=== PATIENT | female | born 1945 | race Caucasian/White ===

== ENCOUNTER 2017-10-12 18:37 | Inpatient (IN) | payer BC, MEDICARE ==
[2017-10-12 19:28] LABS: ADD MAN DIFF? NO
[2017-10-12 19:29] LABS: AGAP ISTAT 17 mmol/L (6-14); BUN ISTAT 16 mg/dL (8-26); CHLORIDE ISTAT 97 mmol/L (98-110); CREATININE ISTAT 0.9 mg/dL (0.5-1.4); GLUCOSE ISTAT 100 mg/dL (70-99); HEMATOCRIT ISTAT 41 % (36-40); HEMOGLOBIN ISTAT 13.9 g/dL (12-15); ION CA ISTAT 1.15 mmol/L (1.13-1.32); POTASSIUM ISTAT 4.7 mmol/L (3.5-5.0); SODIUM ISTAT 132 mmol/L (135-145); TOT CO2 ISTAT 24 mmol/L (23-32)
[2017-10-12 19:30] LABS: BASO # 0.1 x10^3/uL (0.0-0.2); BASO % 1 % (0-3); EOS # 0.6 x10^3/uL (0.0-0.7); EOS % 5 % (0-3); HEMATOCRIT 40.9 % (36.0-47.0); HEMOGLOBIN 14.2 g/dL (12.0-15.5); LYMPH # 1.1 x10^3/uL (1.0-4.8); LYMPH % 9 % (24-48); MEAN CORPUSCULAR HEMOGLOBIN 32 pg (25-35); MEAN CORPUSCULAR HGB CONC 35 g/dL (31-37); MEAN CORPUSCULAR VOLUME 93 fL (79-100); MONO % 8 % (0-9); NEUT # 10.1 x10^3uL (1.8-7.7); NEUT % 78 % (31-73); PLATELET COUNT 273 x10^3/uL (140-400); RED BLOOD COUNT 4.41 x10^6/uL (3.50-5.40); RED CELL DISTRIBUTION WIDTH 14.6 % (11.5-14.5); WHITE BLOOD COUNT 13.1 x10^3/uL (4.0-11.0)
[2017-10-12 19:38] LABS: PROTHROMBIN TIME PATIENT 13.1 SEC (11.7-14.0)
[2017-10-12] MEDS ORDERED: CONTRAST GIVEN. MC (19:45)
[2017-10-12] MEDS: IOHEXOL 300 MG/ML 100ML VIAL. IV (19:45)
[2017-10-12 19:46] LABS: TROPONIN BY ISTAT 0.03 ng/ml (<0.08)
[2017-10-12 19:48] LABS: ALBUMIN 3.6 g/dL (3.4-5.0); ALBUMIN/GLOBULIN RATIO 1.1 (1.0-1.7); ALK PHOS 95 U/L (46-116); ALT (SGPT) 54 U/L (14-59); ANION GAP 9 (6-14); AST (SGOT) 31 U/L (15-37); BLOOD UREA NITROGEN 15 mg/dL (7-20); BUN/CREATININE RATIO 15 (6-20); CALCIUM 8.8 mg/dL (8.5-10.1); CARBON DIOXIDE 27 mmol/L (21-32); CREATINE KINASE 38 U/L (26-192); GFR 54.2; POTASSIUM 4.7 mmol/L (3.5-5.1); TOTAL BILIRUBIN 0.4 mg/dL (0.2-1.0)
[2017-10-12 19:49] LABS: CHLORIDE 97 mmol/L (98-107); GLUCOSE 103 mg/dL (70-99); SODIUM 133 mmol/L (136-145)
[2017-10-12] MEDS ORDERED: HEPARIN for IV BOLUS 10,000 UNIT/10 ML VIAL. IV (21:00)
[2017-10-12] MEDS: dilTIAZem IV PUSH 25 MG/5 ML VIAL IVP (21:01)
[2017-10-12] MEDS ORDERED: fentaNYL PF VIAL 100 MCG/2 ML VIAL IV ×3 (21:30→23:30)
[2017-10-12] MEDS: HEPARIN for IV BOLUS 10,000 UNIT/10 ML VIAL. IV (21:31)
[2017-10-12] MEDS: HEPARIN 25,000UTS/500ML PREMIX 500 ML IV (21:33)
[2017-10-12] MEDS ORDERED: GELATIN SPONGE SIZE 100. (22:37)
[2017-10-12] MEDS ORDERED: IOHEXOL 300 MG/ML 100ML VIAL. (22:37)
[2017-10-12] MEDS ORDERED: PAPAVERINE 60 MG/2 ML VIAL FOR OR ONLY. (22:38)
[2017-10-12] MEDS ORDERED: THROMBIN TOPICAL 20,000 UNIT SPRAY.SYRN KIT TP (22:38)
[2017-10-12] MEDS ORDERED: ONDANSETRON PF 4 MG/2 ML VIAL. IV (23:30)
[2017-10-12] MEDS ORDERED: MORPHINE SULFATE 4 MG/ML DISP.SYRIN. IV (23:30)
[2017-10-12] MEDS ORDERED: IV RINGERS,LACTATED 1000ML 1,000 ML IV (23:30)
[2017-10-12] MEDS ORDERED: LIDOCAINE 1% PF 2 ML VIAL. ID (23:30)
[2017-10-12] MEDS ORDERED: PROCHLORPERAZINE 10 MG/2 ML VIAL. IV (23:30)
[2017-10-12] MEDS ORDERED: SEVOFLURANE > 120 MINUTES. IH (23:38)
[2017-10-12] MEDS ORDERED: ROCURONIUM 50 MG/5 ML VIAL. (23:40)
[2017-10-12] MEDS ORDERED: fentaNYL PF VIAL 100 MCG/2 ML VIAL (23:41)
[2017-10-12] MEDS ORDERED: MIDAZOLAM HCL/PF 2 MG/2 ML VIAL. (23:41)
[2017-10-12] MEDS ORDERED: NEOSTIGMINE METHYLSULFATE 5 MG/5 ML SYRINGE. (23:41)
[2017-10-12] MEDS ORDERED: GLYCOPYRROLATE 1 MG/5 ML VIAL. (23:41)
[2017-10-12] MEDS ORDERED: PROPOFOL 20 ML IV (23:43)
[2017-10-12] MEDS ORDERED: ONDANSETRON PF 4 MG/2 ML VIAL. (23:43)
[2017-10-12] MEDS ORDERED: LIDOCAINE 2% PF Vial for OR 5 ML VIAL. (23:43)
[2017-10-12] MEDS ORDERED: DEXAMETHASONE SOD PHOS 20 MG/5 ML VIAL. (23:43)
[2017-10-13] MEDS ORDERED: PHENYLEPHRINE in 0.9% NACL PF 1 MG/10 ML SYRINGE. IV (00:13)
[2017-10-13] MEDS: SURGICEL FIBRILLAR 1X2 EACH. (00:21)
[2017-10-13] MEDS: HEPARIN SODIUM 5,000 UNIT in IV NORMAL SALINE 500ML BAG 500 ML IRR (00:21)
[2017-10-13] MEDS ORDERED: ePHEDrine PF IN SALINE 50 MG/5 ML DISP.SYRIN IV (00:23)
[2017-10-13] MEDS ORDERED: VASOPRESSIN 20 UNIT/ML VIAL. (00:44)
[2017-10-13] MEDS ORDERED: ROCURONIUM 50 MG/5 ML VIAL. (01:21)
[2017-10-13] MEDS ORDERED: fentaNYL PF VIAL 100 MCG/2 ML VIAL (01:31)
[2017-10-13] MEDS ORDERED: ESMOLOL 100 MG/10 ML VIAL. IV (02:15)
[2017-10-13] MEDS ORDERED: oxyCODONE/APAP 10/325 1 TAB TABLET PO (02:45)
[2017-10-13] MEDS ORDERED: MORPHINE SULFATE 4 MG/ML DISP.SYRIN. IV (02:45)
[2017-10-13] MEDS: CLOPIDOGREL BISULFATE 75 MG TABLET PO (02:57)
[2017-10-13] MEDS ORDERED: ALBUTEROL SULFATE 2.5 MG/3 ML NEBU. (03:41)
[2017-10-13] MEDS ORDERED: ALBUTEROL SULFATE 2.5 MG/3 ML NEBU. NEB (03:45)
[2017-10-13] MEDS ORDERED: METOPROLOL TARTRATE 5 MG/5 ML VIAL. (03:56)
[2017-10-13] MEDS: METOPROLOL TARTRATE 5 MG/5 ML VIAL. IVP ×2 (04:00→04:10)
[2017-10-13 05:23] LABS: BASO % 0 % (0-3); EOS # 0.1 x10^3/uL (0.0-0.7); EOS % 0 % (0-3); HEMATOCRIT 39.6 % (36.0-47.0); HEMOGLOBIN 13.6 g/dL (12.0-15.5); LYMPH # 0.5 x10^3/uL (1.0-4.8); LYMPH % 3 % (24-48); MEAN CORPUSCULAR HEMOGLOBIN 32 pg (25-35); MEAN CORPUSCULAR HGB CONC 34 g/dL (31-37); MEAN CORPUSCULAR VOLUME 94 fL (79-100); MONO # 0.2 x10^3/uL (0.0-1.1); MONO % 1 % (0-9); NEUT # 16.8 x10^3uL (1.8-7.7); NEUT % 95 % (31-73); PLATELET COUNT 253 x10^3/uL (140-400); RED BLOOD COUNT 4.22 x10^6/uL (3.50-5.40); RED CELL DISTRIBUTION WIDTH 14.6 % (11.5-14.5); WHITE BLOOD COUNT 17.5 x10^3/uL (4.0-11.0)
[2017-10-13 05:25] LABS: ADD MAN DIFF? YES
[2017-10-13 05:34] LABS: PARTIAL THROMBOPLASTIN TIME 117 SEC (24-38)
[2017-10-13 06:21] LABS: % BANDS 1 % (0-9); % LYMPHS 2 % (24-48); % MONOS 2 % (0-10); % SEGS 95 % (35-66)
[2017-10-13 06:22] LABS: PLT ESTIMATE ADEQUATE (ADEQUATE)
[2017-10-13] MEDS: ANTI-COAG MONITOR BY PHARMACY. MC (08:54)
[2017-10-13] MEDS ORDERED: HYDROcodone/APAP 5/325MG 1 TAB TABLET PO (09:15)
[2017-10-13] MEDS: HYDROcodone/APAP 5/325MG 1 TAB TABLET PO (12:00)
[2017-10-13] MEDS: ASPIRIN CHEWABLE 81 MG TABLET. PO (12:16)
[2017-10-13] MEDS: DIGOXIN IV 500 MCG/2 ML AMPUL. IV (12:16)
[2017-10-13] MEDS: PANTOPRAZOLE 40 MG TABLET.DR. PO (12:17)
[2017-10-13] MEDS: METOPROLOL TART IMMED RELEASE 50 MG TABLET. PO (18:10)
[2017-10-13] MEDS: ATORVASTATIN CALCIUM 10 MG TABLET. PO (20:31)
[2017-10-13] MEDS: ZOLPIDEM 5 MG TABLET. PO (22:59)
[2017-10-14 04:10] LABS: ADD MAN DIFF? NO
[2017-10-14 04:20] LABS: BASO # 0.1 x10^3/uL (0.0-0.2); BASO % 1 % (0-3); EOS % 0 % (0-3); HEMOGLOBIN 12.5 g/dL (12.0-15.5); LYMPH # 1.4 x10^3/uL (1.0-4.8); LYMPH % 10 % (24-48); MEAN CORPUSCULAR HEMOGLOBIN 32 pg (25-35); MEAN CORPUSCULAR HGB CONC 34 g/dL (31-37); MEAN CORPUSCULAR VOLUME 93 fL (79-100); MONO # 1.2 x10^3/uL (0.0-1.1); MONO % 9 % (0-9); NEUT % 80 % (31-73); PLATELET COUNT 240 x10^3/uL (140-400); RED BLOOD COUNT 3.97 x10^6/uL (3.50-5.40); RED CELL DISTRIBUTION WIDTH 14.5 % (11.5-14.5); WHITE BLOOD COUNT 13.8 x10^3/uL (4.0-11.0)
[2017-10-14 04:50] LABS: ALBUMIN 3.3 g/dL (3.4-5.0); ALBUMIN/GLOBULIN RATIO 1.1 (1.0-1.7); ALK PHOS 80 U/L (46-116); ALT (SGPT) 48 U/L (14-59); ANION GAP 11 (6-14); AST (SGOT) 35 U/L (15-37); BLOOD UREA NITROGEN 12 mg/dL (7-20); BUN/CREATININE RATIO 17 (6-20); CALCIUM 8.4 mg/dL (8.5-10.1); CARBON DIOXIDE 25 mmol/L (21-32); CHLORIDE 98 mmol/L (98-107); CREATININE 0.7 mg/dL (0.6-1.0); GFR 81.8; GLUCOSE 86 mg/dL (70-99); POTASSIUM 4.4 mmol/L (3.5-5.1); SODIUM 134 mmol/L (136-145); TOTAL BILIRUBIN 0.6 mg/dL (0.2-1.0); TOTAL PROTEIN 6.3 g/dL (6.4-8.2)
[2017-10-14 06:17] LABS: UNFRACTIONATED HEPARIN TESTING < 0.10 IU/mL (0.30-0.70)
[2017-10-14] MEDS: METOPROLOL TART IMMED RELEASE 50 MG TABLET. PO ×3 (07:59→20:24)
[2017-10-14] MEDS: PANTOPRAZOLE 40 MG TABLET.DR. PO (07:59)
[2017-10-14] MEDS: ASPIRIN CHEWABLE 81 MG TABLET. PO (07:59)
[2017-10-14] MEDS: CLOPIDOGREL BISULFATE 75 MG TABLET PO (08:00)
[2017-10-14] MEDS: HYDROcodone/APAP 5/325MG 1 TAB TABLET PO (08:00)
[2017-10-14] MEDS: APIXABAN 5 MG TABLET. PO ×2 (10:08→20:23)
[2017-10-14] MEDS: amLODIPine BESYLATE 5 MG TABLET PO (10:09)
[2017-10-14] MEDS: ANTI-COAG MONITOR BY PHARMACY. MC ×2 (14:28→14:31)
[2017-10-14] MEDS ORDERED: hydrALAZINE 20 MG/ML VIAL. IVP (17:00)
[2017-10-14] MEDS: ATORVASTATIN CALCIUM 10 MG TABLET. PO (20:23)
[2017-10-15] MEDS: PANTOPRAZOLE 40 MG TABLET.DR. PO (07:59)
[2017-10-15] MEDS: APIXABAN 5 MG TABLET. PO (08:00)
[2017-10-15] MEDS: ASPIRIN CHEWABLE 81 MG TABLET. PO (08:00)
[2017-10-15] MEDS: METOPROLOL TART IMMED RELEASE 50 MG TABLET. PO (08:01)
[2017-10-15] MEDS: amLODIPine BESYLATE 5 MG TABLET PO (08:02)
[2017-10-15] MEDS: ANTI-COAG MONITOR BY PHARMACY. MC (09:09)
[2017-10-15] MEDS: LOSARTAN POTASSIUM 50 MG TABLET. PO (11:42)
[2017-10-20] MEDS ORDERED: RISEDRONATE SODIUM 35 MG PO (09:00)
== END 2017-10-15 14:50 | disposition home or self-care (01) | DRG 253 ==
LOC: ER 18:37 → 2 NORTH 20:50
PROC: 04CN0ZZ Extirpation of Matter from Left Popliteal Artery, Open Approach (ICD-10-PCS; principal; 2017-10-12 23:40)
PROC: 04CM0ZZ Extirpation of Matter from Right Popliteal Artery, Open Approach (ICD-10-PCS; 2017-10-12 23:40)
PROC: 04CR0ZZ Extirpation of Matter from Right Posterior Tibial Artery, Open Approach (ICD-10-PCS; 2017-10-12 23:40)
DX: I74.3 Embolism and thrombosis of arteries of the lower extremities (principal); E87.1 Hypo-osmolality and hyponatremia; I42.1 Obstructive hypertrophic cardiomyopathy; I82.441 Acute embolism and thrombosis of right tibial vein; I95.9 Hypotension, unspecified; I10 Essential (primary) hypertension; F17.210 Nicotine dependence, cigarettes, uncomplicated; I48.91 Unspecified atrial fibrillation; J44.9 Chronic obstructive pulmonary disease, unspecified; E78.5 Hyperlipidemia, unspecified; I73.9 Peripheral vascular disease, unspecified; I27.20 Pulmonary hypertension, unspecified; Z90.710 Acquired absence of both cervix and uterus; Z79.01 Long term (current) use of anticoagulants; Z79.899 Other long term (current) drug therapy; Z83.3 Family history of diabetes mellitus; Z82.49 Family history of ischemic heart disease and other diseases of the circulatory system; Z80.52 Family history of malignant neoplasm of bladder; Z79.82 Long term (current) use of aspirin
CPT/HCPCS: 36415; 71275; 75635; 80047; 80053; 82550; 84484; 85007; 85025; 85520; 85610; 85730; 86850; 86900; 86901; 93005; 93306; 93880; 96365; 96375; 96376; 97116-GP; 97166-GO; 97530-GO; 97535-GO; 99285; 99285-25; A7015; C1757; J0690; J1100; J1160; J1644; J2250; J2370; J2405; J2440; J2704; J2710; J3010; J3490; J7040; J7120; Q9967

== ENCOUNTER 2017-11-20 12:20 | Day surgery (SDC) | payer BC, MEDICARE ==
[~2017-11-20 12:20] MED LIST: 0.9 % SODIUM CHLORIDE 10 ML DISP.SYRIN. IV
[2017-11-20] MEDS ORDERED: LIDOCAINE 2% PF Vial for OR 5 ML VIAL. (12:22)
[2017-11-20] MEDS ORDERED: PROPOFOL 20 ML IV (12:22)
[2017-11-20] MEDS: IV RINGERS,LACTATED 1000ML 1,000 ML IV (13:05)
== END 2017-11-20 15:37 ==
LOC: SURG 12:20
DX: I48.91 Unspecified atrial fibrillation (principal); R94.31 Abnormal electrocardiogram [ECG] [EKG]; Z79.01 Long term (current) use of anticoagulants; Z90.710 Acquired absence of both cervix and uterus; J44.9 Chronic obstructive pulmonary disease, unspecified; I10 Essential (primary) hypertension; E78.5 Hyperlipidemia, unspecified; I74.3 Embolism and thrombosis of arteries of the lower extremities; I73.9 Peripheral vascular disease, unspecified; I42.1 Obstructive hypertrophic cardiomyopathy; K21.9 Gastro-esophageal reflux disease without esophagitis; M19.90 Unspecified osteoarthritis, unspecified site; M81.0 Age-related osteoporosis without current pathological fracture; F17.210 Nicotine dependence, cigarettes, uncomplicated; Z79.82 Long term (current) use of aspirin; Z79.899 Other long term (current) drug therapy; Z80.52 Family history of malignant neoplasm of bladder; Z83.3 Family history of diabetes mellitus; Z82.49 Family history of ischemic heart disease and other diseases of the circulatory system
CPT/HCPCS: 92960; 93005; J2001; J2704

== ENCOUNTER 2018-01-01 10:26 | Day surgery (SDC) | payer BC, MEDICARE ==
[~2018-01-01 10:26] MED LIST changes: -0.9 % SODIUM CHLORIDE 10 ML DISP.SYRIN. IV; +0.9 % SODIUM CHLORIDE 10 ML DISP.SYRIN. IV PRN; +AMLO5TAB2 PO; +APIX5TAB PO; +ASPI81TA59 PO; +CALC600T4 PO; +CHOL2000 PO; +HYDR-2758 PO; +HYDROmorphone 2 MG/ML VIAL IV PRN; +IV RINGERS,LACTATED 1000ML 1,000 ML IV SCH; +LIDOCAINE 1% PF 2 ML VIAL. ID PRN; +LOSA25TA4 PO; +LOSA50TA6 PO; +METO-247 PO; +MORPHINE SULFATE 2 MG/ML VIAL. IV PRN; +ONDANSETRON PF 4 MG/2 ML VIAL. IV PRN; +PANT20TA2 PO; +PRAV20TA2 PO; +PROCHLORPERAZINE 10 MG/2 ML VIAL. IV PRN; +RISE35TA3 PO; +TIOT18CA IH; +fentaNYL PF VIAL 100 MCG/2 ML VIAL IV PRN
--- NOTE | 2018-01-01 10:59 | EKG ---
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
[2018-01-01 11:01] LABS: CALCIUM 8.7 mg/dL (8.5-10.1); CREATININE 1.1 mg/dL (0.6-1.0); GFR 48.6; MAGNESIUM 1.5 mg/dL (1.8-2.4)
[2018-01-01] MEDS ORDERED: AMIO200T4 PO (11:05)
[2018-01-01] MEDS ORDERED: LIDOCAINE 2% PF Vial for OR 5 ML VIAL. ONE (11:53)
[2018-01-01] MEDS ORDERED: PROPOFOL 20 ML IV ONE (11:53)
--- NOTE | 2018-01-01 12:31 | PDOC4 ---
PROCEDURE Procedure PROCEDURE External cardioversion INDICATIONS Atrial fibrillation COMPLICATIONS None PROCEDURE DETAILS An informed consent was obtained from patient. Anesthesiology team administered intravenous propofol for general anesthesia and patient was given 200 J of synchronized biphasic DC current with successful conversion of patient's rhythm from atrial fibrillation to sinus rhythm. She was hemodynamically stable without any neurological deficits at the end of procedure. CONCLUSIONS Successful cardioversion of atrial fibrillation to sinus rhythm LULU ANDREWS MD Jan 01, 2018 12:31
--- NOTE | 2018-01-01 12:33 | EKG ---
[facility] [address] [place] [address] Test Date: 2018-01-01 Test Time: 12:27:59 Pat Name: WALTER CORREA Department: Room: Gender: F Sample Hand: CLARITA : 1945 Requested By: LULU ANDREWS Order Number: [id number] Reading MD: Phoenix Walden MD Measurements Intervals [place] Rate: 55 P: 64 [place]: 192 QRS: 20 QRSD: 102 T: 168 QT: 458 QTc: 440 Interpretive Statements SINUS RHYTHM LEFT ATRIAL ABNORMALITY ST & T ABNORMALITY, CONSIDER ANTERIOR ISCHEMIA OR LEFT VENTRICULAR STRAIN LATERAL ISCHEMIA OR LEFT VENTRICULAR STRAIN INFEROLATERAL ISCHEMIA OR LEFT VENTRICULAR STRAIN ABNORMAL ECG Electronically Signed On 01-01-2018 16:56:13 CDT by Phoenix Walden MD
[2018-01-01 12:55] VITALS: BP 161/78
== END 2018-01-01 14:00 | disposition home or self-care (01) ==
LOC: SURG 10:26
PROVIDERS: ATTEND Internal Medicine Cardiovascular Disease
DX: I48.91 Unspecified atrial fibrillation (principal); E78.00 Pure hypercholesterolemia, unspecified; I10 Essential (primary) hypertension; Z86.718 Personal history of other venous thrombosis and embolism; K21.9 Gastro-esophageal reflux disease without esophagitis; Z90.710 Acquired absence of both cervix and uterus; M19.90 Unspecified osteoarthritis, unspecified site; M81.0 Age-related osteoporosis without current pathological fracture; F17.210 Nicotine dependence, cigarettes, uncomplicated; Z98.890 Other specified postprocedural states
CPT/HCPCS: 36415; 80048; 83735; 92960; 93005; J2001; J2704

== ENCOUNTER 2018-02-26 10:29 | Day surgery (SDC) | payer BC, MEDICARE ==
[~2018-02-26 10:29] MED LIST changes: -0.9 % SODIUM CHLORIDE 10 ML DISP.SYRIN. IV PRN; +AMIO200T4 PO; -AMLO5TAB2 PO; +AMLO5TAB7 PO; -LOSA25TA4 PO; +LOSA25TA5 PO; -LOSA50TA6 PO; +LOSA50TA7 PO
[2018-02-26] MEDS ORDERED: PROPOFOL 20 ML IV ONE (12:22)
--- NOTE | 2018-02-26 12:52 | PDOC4 ---
PROCEDURE Procedure PROCEDURE External cardioversion INDICATIONS Atrial fibrillation COMPLICATIONS None PROCEDURAL DETAILS An informed consent was obtained from patient. Anesthesiology team induced general anesthesia using intravenous propofol. She was then administered 200 J of synchronized biphasic DC current with successful conversion of patient's rhythm from atrial fibrillation to sinus rhythm. She was hemodynamically stable without any neurological deficits at the end of procedure. She tolerated the procedure well. CONCLUSIONS Successful cardioversion of atrial fibrillation to sinus rhythm. LULU ANDREWS MD Feb 26, 2018 12:52
--- NOTE | 2018-02-26 13:17 | EKG ---
[facility] [address] [place] [address] Test Date: 2018-02-26 Test Time: 13:09:54 Pat Name: WALTER CORREA Department: Room: Gender: F Manager Coding: CLARITA : 1945 Requested By: LULU ANDREWS Order Number: [id number] Reading MD: Phoenix Walden MD Measurements Intervals [place] Rate: 59 P: 66 [place]: 192 QRS: -24 QRSD: 106 T: 56 QT: 504 QTc: 504 Interpretive Statements SINUS RHYTHM LVH PROLONGED QT NON-SPECIFIC ST/T CHANGES Electronically Signed On 02-27-2018 13:47:32 CDT by Phoenix Walden MD
[2018-02-26 13:45] VITALS: BP 163/105
== END 2018-02-26 13:50 | disposition home or self-care (01) ==
LOC: SURG 10:29
PROVIDERS: ATTEND Internal Medicine Cardiovascular Disease
DX: I48.91 Unspecified atrial fibrillation (principal); I10 Essential (primary) hypertension; E78.5 Hyperlipidemia, unspecified; J44.9 Chronic obstructive pulmonary disease, unspecified; M81.0 Age-related osteoporosis without current pathological fracture; Z90.710 Acquired absence of both cervix and uterus; Z90.721 Acquired absence of ovaries, unilateral; Z83.3 Family history of diabetes mellitus; Z82.49 Family history of ischemic heart disease and other diseases of the circulatory system; Z83.49 Family history of other endocrine, nutritional and metabolic diseases; Z80.52 Family history of malignant neoplasm of bladder; F17.210 Nicotine dependence, cigarettes, uncomplicated; Z79.82 Long term (current) use of aspirin; Z79.899 Other long term (current) drug therapy
CPT/HCPCS: 92960; 93005; J2704

== ENCOUNTER → 2019-02-22 | Outpatient (CLI) | payer MEDICARE ==
[~2019-02-22] MED LIST changes: +AMLO5TAB10 PO; -AMLO5TAB7 PO; -HYDR-2758 PO; +HYDR-2761 PO; -HYDROmorphone 2 MG/ML VIAL IV PRN; -IV RINGERS,LACTATED 1000ML 1,000 ML IV SCH; -LIDOCAINE 1% PF 2 ML VIAL. ID PRN; +LOSA-73 PO; -LOSA25TA5 PO; +LOSA25TA54 PO; -LOSA50TA7 PO; -MORPHINE SULFATE 2 MG/ML VIAL. IV PRN; -ONDANSETRON PF 4 MG/2 ML VIAL. IV PRN; -PROCHLORPERAZINE 10 MG/2 ML VIAL. IV PRN; -fentaNYL PF VIAL 100 MCG/2 ML VIAL IV PRN
--- NOTE | 2019-02-23 08:34 | CARD ---
MR#: [id number] Date of Study: 02/22/2019 Ordering Physician: LULU ANDREWS, Referring Physician: LULU ANDREWS, Tech: Emily Motta APPROVED REPORT EXAM: Two-dimensional and M-mode echocardiogram with Doppler and color Doppler. Other Information Quality : AverageHR: 42bpm INDICATION Atrial Fibrillation RISK FACTORS Hypertension Hyperlipidemia Smoking 2D DIMENSIONS RVDd2.1 (2.9-3.5cm)Left Atrium(2D)4.9 (1.6-4.0cm) IVSd1.1 (0.7-1.1cm)Aortic Root(2D)2.6 (2.0-3.7cm) LVDd4.8 (3.9-5.9cm)LVOT Diameter2.0 (1.8-2.4cm) PWd0.9 (0.7-1.1cm)LVDs2.6 (2.5-4.0cm) FS (%) 45.8 %SV81.7 ml LVEF(%)77.1 (>50%) Aortic Valve AoV Peak Luis.172.2cm/sAoV VTI41.3cm AO Peak GR.11.9mmHgLVOT Peak Luis.174.8cm/s LVOT VTI 47.07cmAO Mean GR.6mmHg KARI (VMAX)2.89zz5WXJ (VTI)3.51cm2 AI P 1/2 Abiz750ay Mitral Valve MV E Dmlhzdlq964.3cm/sMV DECEL BWAD645kh MV A Cdmzsefb98.4cm/sMV MTA97qk E/A Ratio2.8MVA (PHT)3.45cm2 TDI E/Lateral E'20.5E/Medial E'23.7 Pulmonary Valve PV Peak Ozzhwhkc13.9cm/sPV Peak Grad.4mmHg Tricuspid Valve RAP PKYVHLEE7nhKeGX Peak Gr.28mmHg YJTB44bdNc Pulmonary Vein S1 Dpnwrmbh53.4cm/sD2 Jkxynfys02.1cm/s PVa rqtenqgh433iynm LEFT VENTRICLE The left ventricle is normal size. There is borderline to mild concentric left ventricular hypertroph y. The left ventricular systolic function is normal and the ejection fraction is within normal range. The Ejection Fraction is >55%. There is normal LV segmental wall motion. The left ventricular diasto lic function and filling is normal for age. RIGHT VENTRICLE The right ventricle is normal size. There is normal right ventricular wall thickness. The right ventr icular systolic function is normal. ATRIA The left atrium is moderately dilated. The right atrium size is normal. The interatrial septum is int act with no evidence for an atrial septal defect or patent foramen ovale as noted on 2-D or Doppler i maging. AORTIC VALVE The aortic valve is calcified but opens well. Doppler and Color Flow revealed mild aortic regurgitati on. There is no significant aortic valvular stenosis. MITRAL VALVE Mitral annular calcification is moderate to severe There is no evidence of mitral valve prolapse. The re is no mitral valve stenosis. Doppler and Color-flow revealed trace to mild mitral regurgitation. TRICUSPID VALVE The tricuspid valve is not well visualized. Doppler and Color Flow revealed trace tricuspid regurgita tion with an estimated PAP of 31 mmHg. There is no tricuspid valve stenosis. PULMONIC VALVE The pulmonic valve is not well visualized. Doppler and Color Flow revealed no pulmonic valvular regur gitation. GREAT VESSELS The aortic root is normal in size. The IVC is normal in size and collapses >50% with inspiration. PERICARDIAL EFFUSION There is no evidence of significant pericardial effusion. Critical Notification Critical Value: No <Conclusion> The left ventricular systolic function is normal and the ejection fraction is within normal range. Th e Ejection Fraction is >55%. There is normal LV segmental wall motion. Doppler and Color Flow revealed trace tricuspid regurgitation with an estimated PAP of 31 mmHg. Signed by : Phoenix Walden, Electronically Approved : 02/23/2019 08:34:19
== END | disposition home or self-care (01) ==
LOC: ECHO 09:35
PROVIDERS: ATTEND Internal Medicine Cardiovascular Disease
DX: I08.0 Rheumatic disorders of both mitral and aortic valves (principal); I48.91 Unspecified atrial fibrillation; I10 Essential (primary) hypertension; E78.5 Hyperlipidemia, unspecified; F17.200 Nicotine dependence, unspecified, uncomplicated
CPT/HCPCS: 93306

== ENCOUNTER 2019-03-31 11:10 | Day surgery (SDC) | payer MEDICARE ==
[~2019-03-31 11:10] MED LIST changes: +HYDROmorphone 2 MG/ML VIAL IV PRN; +IV RINGERS,LACTATED 1000ML 1,000 ML IV SCH; +LIDOCAINE 1% PF 2 ML VIAL. ID PRN; +MORPHINE SULFATE 2 MG/ML VIAL. IV PRN; +ONDANSETRON PF 4 MG/2 ML VIAL. IV PRN; +PROCHLORPERAZINE 10 MG/2 ML VIAL. IV PRN; +fentaNYL PF VIAL 100 MCG/2 ML VIAL IV PRN
[2019-03-31] MEDS ORDERED: PROPOFOL 20 ML IV ONE (12:46)
[2019-03-31] MEDS ORDERED: LIDOCAINE 2% PF 5 ML VIAL. ONE (12:46)
[2019-03-31 13:09] VITALS: BP 136/63
== END 2019-03-31 13:37 | disposition home or self-care (01) ==
LOC: ENDOS 11:10
PROVIDERS: ATTEND Internal Medicine Gastroenterology
DX: K92.1 Melena (principal); K57.30 Diverticulosis of large intestine without perforation or abscess without bleeding; K64.0 First degree hemorrhoids; I10 Essential (primary) hypertension; E78.5 Hyperlipidemia, unspecified; E78.00 Pure hypercholesterolemia, unspecified; F17.210 Nicotine dependence, cigarettes, uncomplicated; K21.9 Gastro-esophageal reflux disease without esophagitis; I48.91 Unspecified atrial fibrillation; Z86.718 Personal history of other venous thrombosis and embolism; Z98.890 Other specified postprocedural states; Z79.82 Long term (current) use of aspirin; Z87.39 Personal history of other diseases of the musculoskeletal system and connective tissue
CPT/HCPCS: 45378; J2001; J2704

== ENCOUNTER → 2020-03-02 | Outpatient (CLI) | payer MEDICARE ==
[~2020-03-02] MED LIST changes: -AMIO200T4 PO; +AMIO200T6 PO; +AMLO-186 PO; -AMLO5TAB10 PO; -CALC600T4 PO; +CALC600T6 PO; -HYDROmorphone 2 MG/ML VIAL IV PRN; -IV RINGERS,LACTATED 1000ML 1,000 ML IV SCH; -LIDOCAINE 1% PF 2 ML VIAL. ID PRN; -MORPHINE SULFATE 2 MG/ML VIAL. IV PRN; -ONDANSETRON PF 4 MG/2 ML VIAL. IV PRN; -PROCHLORPERAZINE 10 MG/2 ML VIAL. IV PRN; +REGADENOSON 0.4 MG/5 ML DISP.SYRIN. IV ONE; -fentaNYL PF VIAL 100 MCG/2 ML VIAL IV PRN
--- NOTE | 2020-03-02 19:32 | RAD ---
MR#: [id number] Date of Study: 03/02/2020 Ordering Physician: LULU ANDREWS, Referring Physician: LIZET WHIPPLE Tech: RT Candace Hay) (N) APPROVED REPORT Test Type: Pharmacological Stress Nurse/Tech: Esther Red R.N. Test Indications: afib Cardiac History: heart cath 20 yrs ago, afib, ablation x3, COPD,smoker, Medications: Enalapril, See Electronic Medical Record Medical History: See Electronic Medical Record Resting ECG: SB w/ BBB Resting Heart Rate: 44 bpm Resting Blood Pressure: 140/54mmHg Pretest Chest Pain: No chest pain Nurse/Tech Notes S1S2, lungs CTA but deminished Consent: The procedure was explained to the patient in lay terms. Informed consent was witnessed. Kelechi eout was entered into [employer]. History and Stress Test performed by RT Candace Hay) (N) Pharm. Details Pharmacologic stress testing was performed using 0.4mg per 5ml of regadenoson given intravenously ove r 7-10 seconds. Stress Symptoms SOA POST EXERCISE Reason for Termination: Infusion complete Max HR: 55 bpm Max Blood Pressure: 116/42mmHg Blood Pressure response to exercise: Normal blood pressure response during stress. Heart Rate response to exercise: wnl Chest Pain: Yes. Arrhythmia: No. ST Change: No. INTERPRETATION Stress EKG Conclusion: No evidence of stress induced EKG changes. Imaging Protocol IMAGE PROTOCOL: Rest Tc-99m/stress Tc-99m 1 day Rest: Stress: Viability: Radiopharm.Tc99m XaexhnmscRd53q Sestamibi Dose10.6mCi 32.6mCi Duration 15min. 10min. Img Date 03/02/2020 03/02/2020 Inj-Img Ejfe26zes. 60min. Rest Admin Site:IV - Right AntecubitalAdministrator:RT Candace Hay)(N) Stress Admin Site: IV - Right AntecubitalAdministrator: VALERY Kerr STRESS DATA End Diast. Vol.94.0mlAv. Heart Rate46.0bpm End Syst. Vol.16.0mlCO Index BSA0.0L/min Myocardial Jicf839.0gEject. Hfnbnmdt53.0% Stress Rates Pk. Fill Rate2.43EDV/secLVtime Pk. Fill 236.64msec Pk. Empty Rate3.11ESV/secLVtime Pk. Xmazz429.27msec 1/3 Pk. Fill1.19EDV/sec Stress Scores Regional WT0.00Summed WT0.00 Regional WM0.00Summed WM0.00 The rest and stress images show normal perfusion, normal contraction and thickening. LV Perf. Quant 17 Seg. SSS2.00 17 Seg. SRS2.00 17 Seg. SDS0.00 Stress Defect Extent (% LAD)0.00Rest Defect Extent (% LAD)0.00Rev. Defect Extent (% LAD)0.00 Stress Defect Extent (% LCX) 0.00Rest Defect Extent (% LCX)20.00Rev. Defect Extent (% LCX)0.00 Stress Defect Extent (% RCA)0.00Rest Defect Extent (% RCA)0.00Rev. Defect Extent (% RCA)0.00 Stress Defect Extent (% JONG)0.00Rest Defect Extent (% JONG)3.50Rev. Defect Extent (% JONG)0.00 Other Information Quality:Good Risk Assessment: Low Risk Conclusion 1. No evidence of EKG changes with stress testing. 2. Normal perfusion at stress/rest. 3. Low risk study. 4. EF > 60%. Signed by : Phoenix Walden, Electronically Approved : 03/02/2020 19:32:20
--- NOTE | 2020-03-02 19:38 | CARD ---
MR#: [id number] Date of Study: 03/02/2020 Ordering Physician: LULU ANDREWS, Referring Physician: LULU ANDREWS Tech: Penny Bond RDCS APPROVED REPORT EXAM: Two-dimensional and M-mode echocardiogram with Doppler and color Doppler. Other Information Quality : Fair Rhythm : BradycardiaTechnically limited study due to body habitus. INDICATION Atrial Fibrillation RISK FACTORS Smoking 2D DIMENSIONS RVDd1.8 (2.9-3.5cm)Left Atrium(2D)4.5 (1.6-4.0cm) IVSd1.0 (0.7-1.1cm)Aortic Root(2D)2.7 (2.0-3.7cm) LVDd4.6 (3.9-5.9cm)LVOT Diameter1.7 (1.8-2.4cm) PWd0.9 (0.7-1.1cm)LVDs3.0 (2.5-4.0cm) FS (%) 33.2 %SV58.9 ml LVEF(%)61.8 (>50%) Aortic Valve AoV Peak Luis.190.3cm/Nadia Peak GR.14.5mmHg LVOT Peak Luis.212.5cm/sAVA (VMAX)2.63cm2 AI P 1/2 Ootb842in Mitral Valve MV E Owuesuya882.5cm/sMV DECEL KWEG330kn MV A Tfytpkhb36.7cm/sE/A Ratio2.0 Tricuspid Valve TR P. Zbqgwvrr103xj/sRAP CSZFAPVV8leXs TR Peak Gr.44myGpRDOQ36ujJg Pulmonary Vein S1 Vlxfgska67.3cm/sD2 Ykvwlbja63.8cm/s LEFT VENTRICLE The left ventricle is normal size. There is normal left ventricular wall thickness. The left ventricu lar systolic function is normal and the ejection fraction is within normal range. The Ejection Fracti on is 60-65%. There is normal LV segmental wall motion. Transmitral Doppler flow pattern is Grade II- pseudonormal filling dynamics. RIGHT VENTRICLE The right ventricle is normal size. The right ventricular systolic function is normal. ATRIA The left atrium is mildly dilated. The right atrium size is normal. The interatrial septum is intact with no evidence for an atrial septal defect or patent foramen ovale as noted on 2-D or Doppler imagi ng. AORTIC VALVE The aortic valve is calcified but opens well. Doppler and Color Flow revealed mild to moderate aortic regurgitation. There is no significant aortic valvular stenosis. MITRAL VALVE The mitral valve is moderately thickened but opens well. Mitral annular calcification is moderate. Th ere is no evidence of mitral valve prolapse. There is no mitral valve stenosis. Doppler and Color-ellen w revealed mild mitral regurgitation. TRICUSPID VALVE The tricuspid valve is normal in structure and function. Doppler and Color Flow revealed trace tricus pid regurgitation. There is mild pulmonary hypertension. The PA pressure was estimated at 35 mmHg. Th ere is no tricuspid valve stenosis. PULMONIC VALVE Doppler and Color Flow revealed no pulmonic valvular regurgitation. There is no pulmonic valvular mike nosis. GREAT VESSELS The aortic root is normal in size. The ascending aorta is not well seen. The IVC is normal in size an d collapses >50% with inspiration. PERICARDIAL EFFUSION There is no evidence of significant pericardial effusion. Critical Notification Critical Value: No <Conclusion> The left ventricular systolic function is normal and the ejection fraction is within normal range. Th e Ejection Fraction is 60-65%. There is normal LV segmental wall motion. Doppler and Color Flow revealed mild to moderate aortic regurgitation. Doppler and Color Flow revealed trace tricuspid regurgitation. There is mild pulmonary hypertension. The PA pressure was estimated at 35 mmHg. Signed by : Pohenix Walden, Electronically Approved : 03/02/2020 19:38:08
== END ==
LOC: NM 10:51
PROVIDERS: ATTEND Internal Medicine Cardiovascular Disease
DX: I08.0 Rheumatic disorders of both mitral and aortic valves (principal); I27.20 Pulmonary hypertension, unspecified; I48.91 Unspecified atrial fibrillation; Z87.891 Personal history of nicotine dependence; Z95.5 Presence of coronary angioplasty implant and graft
CPT/HCPCS: 78452; 93017; 93306; A9500; J2785

== ENCOUNTER → 2021-02-25 | Outpatient (CLI) | payer MEDICARE ==
[~2021-02-25] MED LIST changes: -CALC600T6 PO; +CALC600T60 PO; -REGADENOSON 0.4 MG/5 ML DISP.SYRIN. IV ONE
--- NOTE | 2021-02-25 15:47 | CARD ---
MR#: [id number] Date of Study: 02/25/2021 Ordering Physician: LULU ANDREWS, Referring Physician: Stephani WHIPPLE: Faustino Strong [facility] APPROVED REPORT EXAM: Two-dimensional and M-mode echocardiogram with Doppler and color Doppler. Other Information Quality : FairHR: 46bpm Rhythm : NSRTechnically limited study due to smoking. INDICATION Atrial Fibrillation RISK FACTORS Hypertension Hyperlipidemia Smoking 2D DIMENSIONS Left Atrium(2D)4.8 (1.6-4.0cm)IVSd0.8 (0.7-1.1cm) Aortic Root(2D)3.0 (2.0-3.7cm)LVDd5.1 (3.9-5.9cm) LVOT Diameter1.9 (1.8-2.4cm)PWd0.8 (0.7-1.1cm) LVDs3.6 (2.5-4.0cm)FS (%) 29.3 % SV70.3 ml Aortic Valve AoV Peak Luis.198.0cm/sAoV VTI53.2cm AO Peak GR.15.7mmHgLVOT Peak Luis.194.3cm/s LVOT VTI 35.53cmAO Mean GR.9mmHg KARI (VMAX)2.54ee2MWR (VTI)1.90cm2 Mitral Valve MV E Zicdzrdd651.1cm/sMV DECEL CELT447ac MV A Fzqlsmmt94.8cm/sMV CRV142ta E/A Ratio2.0MVA (PHT)1.72cm2 TDI E/Lateral E'24.7E/Medial E'23.8 Pulmonary Valve PV Peak Mmlaagsc227.6cm/sPV Peak Grad.5mmHg Tricuspid Valve TR P. Umouhtgf532sg/sTR Peak Gr.17mmHg Pulmonary Vein S1 Xxiyawpr68.6cm/sD2 Atwekcia51.9cm/s LEFT VENTRICLE The left ventricle is normal size. There is mild concentric left ventricular hypertrophy. The left ve ntricular systolic function is normal. LV ejection fraction is 60-65%. There is normal LV segmental wall motion. Transmitral Doppler flow pattern is Grade II-pseudonormal filling dynamics. No left vent ricle thrombus noted on this study. There is no ventricular septal defect visualized. There is no lef t ventricular aneurysm. There is no mass noted in the left ventricle. RIGHT VENTRICLE The right ventricle is normal size. There is normal right ventricular wall thickness. The right ventr icular systolic function is normal. ATRIA The left atrium is moderately dilated. The right atrium size is normal. The interatrial septum is int act with no evidence for an atrial septal defect or patent foramen ovale as noted on 2-D or Doppler i maging. AORTIC VALVE The aortic valve is mildly sclerotic. Doppler and Color Flow revealed mild aortic regurgitation. Ther e is no significant aortic valvular stenosis. There is no aortic valvular vegetation. MITRAL VALVE Mitral annular calcification is moderate. There is no evidence of mitral valve prolapse. There is no significant mitral valve stenosis. Doppler and Color-flow revealed mild mitral regurgitation. TRICUSPID VALVE The tricuspid valve is normal in structure and function. Doppler and Color Flow revealed trace tricus pid regurgitation. There is no tricuspid valve prolapse or vegetation. There is no tricuspid valve st enosis. PULMONIC VALVE The pulmonic valve is not well seen. Doppler and Color Flow revealed no pulmonic valvular regurgitati on. There is no pulmonic valvular stenosis. GREAT VESSELS The aortic root is normal in size. The ascending aorta is normal in size. The pulmonary artery is nor mal. The IVC is normal in size and collapses >50% with inspiration. PERICARDIAL EFFUSION There is no pleural effusion. There is no evidence of significant pericardial effusion. Critical Notification Critical Value: No <Conclusion> The left ventricle is normal size. The left ventricular systolic function is normal. LV ejection fraction is 60-65%. There is mild concentric left ventricular hypertrophy. Doppler and Color Flow revealed mild aortic regurgitation. There is no significant aortic valvular stenosis. Mitral annular calcification is moderate. There is no significant mitral valve stenosis. Doppler and Color-flow revealed mild mitral regurgitation. Doppler and Color Flow revealed trace tricuspid regurgitation. Signed by : Jose Howe MD Electronically Approved : 02/25/2021 15:47:17
== END ==
LOC: ECHO 07:40
PROVIDERS: ATTEND Internal Medicine Cardiovascular Disease
DX: I08.0 Rheumatic disorders of both mitral and aortic valves (principal); I48.91 Unspecified atrial fibrillation; I10 Essential (primary) hypertension; E78.5 Hyperlipidemia, unspecified; F17.210 Nicotine dependence, cigarettes, uncomplicated
CPT/HCPCS: 93306

== ENCOUNTER → 2021-07-05 | Outpatient (CLI) | payer MEDICARE ==
[~2021-07-05] MED LIST changes: +AMIO200T53 PO; -AMIO200T6 PO
--- NOTE | 2021-07-05 16:28 | RAD ---
EXAM: PET/CT SKULL BASE THROUGH MID THIGH. HISTORY: Lung nodule, mediastinal lymphadenopathy.. TECHNIQUE: CT of the skull base through the mid thighs was performed for the purposes of attenuation correction. 12.0 mCi F-18 fluorodeoxyglucose were administered intravenously. Blood glucose level at the time of administration was 103 mg/dL. After 45 minutes uptake, positron emission tomography of th e skull base through the mid thighs was performed. The PET and CT data were fused and interpreted in combination on a dedicated workstation. Reported standard uptake values (SUV) are the maximum SUV wit hin a lesional volumetric region of interest. SUV normalization is via body mass. COMPARISON: CT chest abdomen pelvis 08/28/2017. FINDINGS: Mediastinal blood pool SUV reference value: SUV max 2.55, SUV mean 2.08. HEAD AND NECK: No abnormal FDG uptake or lymphadenopathy. Mild FDG uptake in the region of the soft p alate and vocal folds is likely physiologic. CHEST: There is mild to moderate FDG uptake in the right apical semisolid nodular opacity with SUV max 5.06. The opacity is new from 10/13/2017 and measures overall approximately 2.5 x 1.6 cm. There is similar m ild to moderate focal FDG uptake at the right hilum with SUV max 4.9. Mild FDG uptake in a low right paratracheal lymph node, SUV max 3.13. Mild FDG uptake in a precarinal lymph noted and an AP window lymph node SUV max 2.74 and 3.01, respectively. Lymphadenopathy has dec reased compared to 10/13/2017. A new 9 mm subpleural nodule in the anterior right upper lobe has low-level FDG uptake with SUV max 1 .8. Several additional pulmonary nodules in the right lung measuring up to 5 mm have no FDG uptake a nd are likely below the size threshold for PET detection. There is a calcified granuloma in the left lower lobe. Decreased, small partially loculated right ple ural effusion with no FDG uptake. Mild adjacent confluent opacities in the posterior right lower lobe with no FDG uptake, likely atelectasis or scarring.The heart is enlarged. There are coronary artery calcifications and mitral annulus calcifications. Thoracic aorta is normal in caliber with mild calci fications. Probable narrowing of the proximal left subclavian artery. ABDOMEN AND PELVIS: No suspicious FDG uptake or lymphadenopathy. There is mild scattered FDG uptake in the cecum, ascendi ng colon, and in small bowel in the pelvis, likely physiologic. There is a 1.7 cm cyst in the left he patic lobe. There is increased attenuation of the liver, which can be seen with Fco disease or hem achromatosis. The gallbladder is mildly distended. Pancreas, spleen, adrenal glands, kidneys, bladder are normal. Prostate gland is small or absent. There is severe calcified aortoiliac atherosclerosis. No ascites. MUSCULOSKELETAL: No abnormal FDG uptake. The bones are diffusely demineralized. IMPRESSION: 1. Mild to moderate FDG uptake in the right apical semisolid nodular opacity, SUV max 5.06. This coul d represent malignancy or infectious/inflammatory changes. Recommend correlation with biopsy. 2. There is similar mild to moderate FDG uptake in a right hilar lymph node, which could be metastati c disease or reactive. 3. There is low-level FDG uptake in the 9 mm subpleural nodule in the anterior right upper lobe and n o uptake in a few other small pulmonary nodules, which may be below the size threshold for PET detect ion. Recommend continued surveillance. 4. Milder uptake in other mediastinal lymph nodes are favored to be reactive. The lymph nodes have al l decreased in size from 10/13/2017. Recommend continued surveillance. 5. Other chronic CT findings as above. Electronically signed by: Adore Conway MD (07/05/2021 4:26 PM) [id number]
== END ==
LOC: PETSC 11:17
PROVIDERS: ATTEND Internal Medicine Pulmonary Disease
DX: R91.8 Other nonspecific abnormal finding of lung field (principal); J90 Pleural effusion, not elsewhere classified; J84.10 Pulmonary fibrosis, unspecified; R59.0 Localized enlarged lymph nodes; I51.7 Cardiomegaly; I70.0 Atherosclerosis of aorta; K76.89 Other specified diseases of liver; I25.10 Atherosclerotic heart disease of native coronary artery without angina pectoris
CPT/HCPCS: 78815; A9552

== ENCOUNTER → 2021-09-09 | Outpatient (CLI) | payer MEDICARE ==
--- NOTE | 2021-09-09 11:56 | RAD ---
CT of the chest without contrast: Clinical History: Reason: lung nodule / Spl. Instructions: / History: . Axial helical images of the chest were obtained without contrast. Comparisons: October 12, 2017 CT and July 05, 2021 PET/CT FINDINGS: There is an irregular highly lobulated mass in the right upper lobe that measures 3.4 x 1.9 cm. Infer iorly the right upper lobe there is a satellite lesion that measures 1 cm in diameter and there is a spiculated pleural blunting mass in the right upper lobe that measures 1.3 cm in diameter. There is a small right pleural effusion with adjacent infiltrate and there is linear opacities in the lung base s which are seen previously and likely scar. There are mildly enlarged lymph nodes in the mediastinum however these were seen previously. The largest lymph node is just above the right main pulmonary ar daisy and measures 2 cm in short axis. There is diffuse emphysematous changes in the lungs. There is significant coronary artery calcifications. There is a simple cyst in the left lobe of the liver. Impression: 1. Multiple pulmonary masses. The 2 largest in the right upper lobe are larger. This is highly suspic ious for an aggressive primary lung cancer specially if the patient is a former smoker. 2. Mediastinal lymphadenopathy was seen previously could be reactive however, there is a lymph node w hich is considerably larger and is therefore suspicious for metastatic cancer. 2. Chronic small right pleural effusion with adjacent infiltrate in the lung base. End of impression PQRS Compliance Statement: One or more of the following individualized dose reduction techniques were utilized for this examinat ion: 1. Automated exposure control 2. Adjustment of the mA and/or kV according to patient size 3. Use of iterative reconstruction technique Electronically signed by: Faustino Leonard III, MD (09/09/2021 11:53 AM) [facility]
== END ==
LOC: CT 10:08
PROVIDERS: ATTEND Internal Medicine Pulmonary Disease
DX: R91.8 Other nonspecific abnormal finding of lung field (principal); J90 Pleural effusion, not elsewhere classified; R59.0 Localized enlarged lymph nodes; I25.10 Atherosclerotic heart disease of native coronary artery without angina pectoris; K76.89 Other specified diseases of liver; J43.9 Emphysema, unspecified
CPT/HCPCS: 71250

== ENCOUNTER 2021-10-01 08:16 | Outpatient (CLI) | payer MEDICARE ==
[~2021-10-01] VITALS: Ht 167.6 cm; Wt 68.2 kg
[2021-10-01] VITALS (14 sets, daily range): BP systolic 99–175; BP diastolic 42–72
[2021-10-01] MEDS ORDERED: AMLO-186 PO (08:58)
[2021-10-01] MEDS ORDERED: [UNRECOGNIZED DRUG - CODE] PO (08:58)
[2021-10-01] MEDS ORDERED: HYDR-2145 PO (08:58)
[2021-10-01 09:11] LABS: BASO # 0.1 x10^3/uL (0.0-0.2); BASO % 1 % (0-3); EOS # 0.3 x10^3/uL (0.0-0.7); EOS % 4 % (0-3); HEMATOCRIT 34.6 % (36.0-47.0); HEMOGLOBIN 11.6 g/dL (12.0-15.5); LYMPH % 14 % (24-48); MEAN CORPUSCULAR HEMOGLOBIN 29 pg (25-35); MEAN CORPUSCULAR HGB CONC 34 g/dL (31-37); MEAN CORPUSCULAR VOLUME 86 fL (79-100); MONO # 0.8 x10^3/uL (0.0-1.1); MONO % 11 % (0-9); NEUT # 5.1 x10^3/uL (1.8-7.7); NEUT % 70 % (31-73); PLATELET COUNT 281 x10^3/uL (140-400); RED CELL DISTRIBUTION WIDTH 15.8 % (11.5-14.5); WHITE BLOOD COUNT 7.4 x10^3/uL (4.0-11.0)
[2021-10-01 09:28] LABS: PROTHROMBIN TIME PATIENT 13.3 SEC (11.7-14.0)
[2021-10-01] MEDS ORDERED: LIDOCAINE WITH 8.4% SOD BICARB 3 ML DISP.SYRIN. ONE (09:36)
[2021-10-01] MEDS ORDERED: MIDAZOLAM HCL/PF 2 MG/2 ML VIAL. ONE (09:58)
[2021-10-01] MEDS ORDERED: fentaNYL PF VIAL 100 MCG/2 ML VIAL ONE (09:58)
[2021-10-01] MEDS ORDERED: LIDOCAINE WITH 8.4% SOD BICARB 3 ML DISP.SYRIN. IJ ONE (10:15)
[2021-10-01] MEDS ORDERED: fentaNYL PF VIAL 100 MCG/2 ML VIAL IV ONE (10:15)
[2021-10-01] MEDS ORDERED: MIDAZOLAM HCL/PF 2 MG/2 ML VIAL. IV ONE (10:15)
--- NOTE | 2021-10-01 12:32 | NUR ---
Discharge Note: WALTER CORREA Discharge instructions and discharge home medications reviewed with Patient and a copy given. All questions have been answered and understanding verbalized. The following instructions and handouts were given: moderate sedation and post care for lung biopsy Discontinued lines and drains: Peripheral IV intact. Patient discharged to Home or Self Care withFamily Membera Wheelchair
--- NOTE | 2021-10-01 13:33 | RAD ---
XR CHEST 1V History: Reason: SP lung biopsy / Spl. Instructions: / History: Comparison: September 09, 2021 Findings: Right upper lobe mass. No pneumothorax. Small left pleural effusion. Calcified left basilar pulmonary nodule prior granulomatous disease. Unchanged heart size. Prominence of the right hilum, may relate to known lymphadenopathy. Impression: 1. Right upper lobe mass. No pneumothorax. 2. Small right pleural effusion. Electronically signed by: Jaylen Acharya DO (10/01/2021 1:31 PM) [id number]
--- NOTE | 2021-10-01 16:32 | RAD ---
CT-guided biopsy, right upper lobe pulmonary mass 10/01/2021 Clinical Indication: Right upper lobe lung mass. Consent: The procedure was explained in its entirety to the patient or the patients designated repres entative by a member of the treatment team, including a discussion of the risks, benefits and commonl y accepted alternatives to the procedure, as well as the expected consequences of no therapy whatsoev er. Discussion of the risks included, but was not limited to, those that are most frequent and thos e that are rare but possibly severe or life-threatening, as well as the possibility of unforeseen com plications. Patient was brought to the CT scanner and placed in the prone position. A timeout procedure was perfo rmed. CT imaging redemonstrates a mass in the right upper lobe. Posterior chest was prepped and drape d using sterile barrier technique. Under intermittent CT guidance a 17-gauge needle was advanced into the mass. Biopsies were obtained. Needle was removed. Manual pressure was held. Sterile dressings we re applied. Repeat CT demonstrates no pneumothorax or other immediate complication. Sedation: The procedure was performed under conscious sedation including continuous cardiopulmonary m onitoring via a dedicated sedation nurse. Dbmg-on-pekt sedation time: 12 minutes Conclusion: CT-guided biopsy, right upper lobe lung mass CT DOSING PQRS STATEMENT: One or more of the following individualized dose reduction techniques were utilized for this examinat ion: 1. Automated exposure control 2. Adjustment of the mA and/or kV according to patient size 3. Use of iterative reconstruction technique Electronically signed by: Erik Mccray MD (10/01/2021 4:29 PM) [id number]
== END 2021-10-01 12:40 | disposition home or self-care (01) ==
LOC: INTRAD 08:16
PROVIDERS: ATTEND Internal Medicine Pulmonary Disease
DX: J90 Pleural effusion, not elsewhere classified (principal); R91.8 Other nonspecific abnormal finding of lung field; I10 Essential (primary) hypertension; I48.91 Unspecified atrial fibrillation; J44.9 Chronic obstructive pulmonary disease, unspecified; K21.9 Gastro-esophageal reflux disease without esophagitis; M81.0 Age-related osteoporosis without current pathological fracture; M19.90 Unspecified osteoarthritis, unspecified site; F17.210 Nicotine dependence, cigarettes, uncomplicated; Z79.899 Other long term (current) drug therapy; Z98.890 Other specified postprocedural states; Z79.82 Long term (current) use of aspirin
CPT/HCPCS: 32408; 36415; 71045; 85025; 85610; 99152; J2250; J3010; J3490; 88305; 88341; 88342